=== PATIENT | female | born 2000 | race Caucasian/White ===

== ENCOUNTER 2025-02-08 18:39 | Emergency (ER) | payer SELFPAY ==
[~2025-02-08] VITALS: Ht 165.1 cm; Wt 71.0 kg
[2025-02-08 18:42] VITALS: O2SAT 100
[2025-02-08] MEDS: METHYLPREDNISOLONE SOD SUCC 125MG/2ML (ACT-O-VIAL) IV ONE (19:26)
[2025-02-08] MEDS: SODIUM CHLORIDE 0.9% 1,000 ML IV ONE (19:26)
[2025-02-08] MEDS: DIPHENHYDRAMINE 50MG/ML VIAL IV ONE (19:26)
[2025-02-08] MEDS: FAMOTIDINE 20MG/2ML VIAL IV ONE (19:53)
[2025-02-08] MEDS: EPINEPHRINE 1:1000 1 MG/ML AMP INJ ONE (19:53)
[2025-02-08] MEDS ORDERED: EPIN0.3P3 IM (21:25)
[2025-02-08] MEDS ORDERED: DIPH50CA42 MT (21:25)
[2025-02-08 23:04] VITALS: BP 95/55; PULSE 73; RESP 16; TEMP 36.6; O2SAT 100
== END 2025-02-08 23:08 | disposition home or self-care (01) ==
LOC: ER 18:39
DX: T78.2XXA Anaphylactic shock, unspecified, initial encounter (principal); X58.XXXA Exposure to other specified factors, initial encounter; Y93.89 Activity, other specified; Y92.89 Other specified places as the place of occurrence of the external cause; Y99.8 Other external cause status
CPT/HCPCS: 99284; 96374; 96375; 96361; 81025; J2919; J1200; J3490; J1308; J7030